=== PATIENT | male | born 1965 | race Two or more races ===

== ENCOUNTER 2018-02-21 04:20 | Emergency (ER) | payer OTHER ==
--- NOTE | 2018-02-21 04:53 | PDOC ---
History of Present Illness - General Stated Complaint: MUSCLE TIGHTNESS Time Seen by Provider: 02/21/18 04:51 - History of Present Illness Initial Comments: The patient is a 52M w/ a history of HTN and R hip surgery 2/2 trauma many years ago who presents for evaluation of acute on chronic R hip pain. The patient states that he feels right lateral thigh 'tightness'. He reports having chronic pain in his R hip that he has had since his surgery. He taking Celebrex and Baclofen for his pain with moderate relief. The patient also states that he feels some tightness when he has been sitting for some time and stands. The tightness alleviates after standing for some time. The patient denies recent trauma or injury to the hip. The patient denies fevers/chill, recent illness, falls, numbness/tingling, or weakness. The patient is able to ambulate w/o assistance Patient reports taking his Baclofen today but none of his other medications including his anti-hypertensives 02/21/18 06:09 Past History - Past Medical History Allergies/Adverse Reactions: Allergies Allergy/AdvReac Type Severity Reaction Status Date / Time oxycodone HCl [From Percocet] AdvReac Severe Verified 02/21/18 05:04 Home Medications: Ambulatory Orders Acetaminophen W/ Codeine #3 [Tylenol # 3 -] 1 tab PO Q4H PRN 12/24/14 Meloxicam [Mobic (Nf) -] 15 mg PO DAILY 12/24/14 Methocarbamol [Robaxin -] 1,000 mg PO TID #18 tablet 12/24/14 Tramadol HCl [Ultram] 50 mg PO BID #20 tablet MDD 2 02/21/18 - Suicide/Smoking/Psychosocial Hx Smoking History: Never smoked Hx Alcohol Use: No Drug/Substance Use Hx: No Review of Systems - Review of Systems Able to Perform ROS?: Yes Comments:: GENERAL/CONSTITUTIONAL: No fever or chills. No weakness HEAD, EYES, EARS, NOSE AND THROAT: No change in vision. No ear pain or discharge. No sore throat CARDIOVASCULAR: No chest pain or shortness of breath RESPIRATORY: No cough, wheezing, or hemoptysis GASTROINTESTINAL: No nausea, vomiting, diarrhea or constipation GENITOURINARY: No dysuria, frequency, or change in urination MUSCULOSKELETAL: per HPI SKIN: No rash NEUROLOGIC: No headache, vertigo, loss of consciousness, or change in strength/ sensation ENDOCRINE: No increased thirst. No abnormal weight change HEMATOLOGIC/LYMPHATIC: No anemia, easy bleeding, or history of blood clots ALLERGIC/IMMUNOLOGIC: No hives or skin allergy 02/21/18 06:22 Is the patient limited Tamazight proficient: No *Physical Exam - Vital Signs 02/21/18 06:24 Vital Signs Temp Pulse Resp BP Pulse Ox 98.7 F 78 20 154/98 98 02/21/18 05:04 02/21/18 05:04 02/21/18 05:04 02/21/18 05:04 02/21/18 05:04 - Physical Exam Comments: GENERAL: Awake, alert, and fully oriented, in no acute distress HEAD: No signs of trauma, normocephalic, atraumatic EYES: PERRL, EOMI, sclera anicteric, conjunctiva clear ENT: Hearing grossly normal, nares patent, oropharynx clear without exudates. Moist mucosa NECK: Normal ROM, supple LUNGS: No distress, speaks full sentences, clear to auscultation bilaterally HEART:Regular rate and rhythm, normal S1 and S2, no murmurs appreciated, peripheral pulses normal and equal bilaterally ABDOMEN: Soft, nontender, normoactive bowel sounds. No guarding, no rebound NEUROLOGICAL: Cranial nerves II through XII grossly intact. Normal speech, normal gait, no focal sensorimotor deficits SKIN: Warm, Dry, normal turgor, no rashes or lesions noted RLE: Inspection: Well healed scar over hip. No erythema or ecchymosis. No tenderness , no obvious abnormalities, no open wounds. Compartments soft and compressible, no pain to passive stretch Sensation: SPLT DP, SP, Tib, Alfonzo, Saph sensation to light touch intact Motor: 5/5 EHL, 5/5 FHL, 5/5 TA, 5/5GS, 5/5 Quad, 5/5 Ham Vascular: 2+ DP/PT, all toes BCR <2 sec LLE: Inspection: No erythema or ecchymosis. No tenderness, no obvious abnormalities, no open wounds. Compartments soft and compressible, no pain to passive stretch Sensation: SPLT DP, SP, Tib, Alfonzo, Saph sensation to light touch intact Motor: 5/5 EHL, 5/5 FHL, 5/5 TA, 5/5GS, 5/5 Quad, 5/5 Ham Vascular: 2+ DP/PT, all toes BCR <2 sec 02/21/18 06:24 Medical Decision Making - Medical Decision Making The patient is a 52M w/ a history of HTN and R hip surgery who presents for evaluation of acute on chronic R thigh tightness Ddx: muscle spasm, joint stiffness 2/2 reduced mobility, arthritis, not likely trauma or fx ED Course Rx for Tramadol Instructions for stretching exercises given Plan for D/C w/ PCP f/u Return precautions given Plan discussed with patient who is in agreement and verbalized understanding Dispo: Home 02/21/18 06:26 *DC/Admit/Observation/Transfer Diagnosis at time of Disposition: Right hip pain, Muscle tightness - Discharge Dispostion Disposition: HOME Condition at time of disposition: Stable Decision to Admit order: No - Prescriptions Prescriptions: Tramadol HCl [Ultram] 50 mg PO BID #20 tablet MDD 2 - Referrals Referrals: Brian Clark MD [Primary Care Provider] - - Patient Instructions Printed Discharge Instructions: Stretching Exercises Additional Instructions: You were seen today in the Emergency Room for right hip/muscle tightness. Please review the handouts provided at discharge. Please follow up with your primary care provider within the next 1-3 days. Return to the Emergency Room if you develop fevers, changes in sensation, worsening pain, or any new/concerning symptoms. - Post Discharge Activity
[2018-02-21 05:05] VITALS: PULSE 78; TEMP 98.7; BMI 41.8
--- NOTE | 2018-02-21 06:12 | PDOC ---
Attending Attestation - Resident Resident Name: Bakari Berkowitz - ED Attending Attestation I have performed the following: I have examined & evaluated the patient, The case was reviewed & discussed with the resident, I agree w/resident's findings & plan
[2018-02-21 06:53] VITALS: BP 145/78
== END 2018-02-21 06:54 | disposition home or self-care (01) ==
LOC: JER 04:20
DX: M25.551 Pain in right hip (principal); M62.89 Other specified disorders of muscle; I10 Essential (primary) hypertension; Z98.890 Other specified postprocedural states
CPT/HCPCS: 99281-25

== ENCOUNTER 2021-08-28 21:46 | Emergency (ER) | payer OTHER ==
[2021-08-28 22:00] VITALS: BP 163/89; PULSE 93; TEMP 98.1; BMI 44.6
[2021-08-28] MEDS ORDERED: KETOROLAC TROMETHAMINE 30 MG/1 ML VIAL IM ONE (22:16)
[2021-08-28] MEDS ORDERED: METHOCARBAMOL 500 MG TABLET PO ONE (22:16)
[2021-08-28] MEDS ORDERED: METHOCARBAMOL 500 MG TABLET ONE (22:19)
[2021-08-28] MEDS ORDERED: KETOROLAC TROMETHAMINE 30 MG/1 ML VIAL ONE (22:19)
== END 2021-08-28 23:01 | disposition home or self-care (01) ==
LOC: JER 21:46
PROC: 3E023GC Introduction of Other Therapeutic Substance into Muscle, Percutaneous Approach (ICD-10-PCS; principal; 2021-08-28)
DX: M25.551 Pain in right hip (principal); V49.40XA Driver injured in collision with unspecified motor vehicles in traffic accident, initial encounter
CPT/HCPCS: 73502-TC-RT-FY; 99284-25

== ENCOUNTER 2021-09-03 03:45 | Emergency (ER) | payer OTHER ==
[2021-09-03 04:14] VITALS: TEMP 98.3; BMI 44.6
[2021-09-03] MEDS ORDERED: KETOROLAC TROMETHAMINE 30 MG/1 ML VIAL IM ONE (04:59)
[2021-09-03] MEDS ORDERED: KETOROLAC TROMETHAMINE 30 MG/1 ML VIAL ONE (05:05)
[2021-09-03 05:50] VITALS: BP 160/89; PULSE 81
== END 2021-09-03 06:39 | disposition home or self-care (01) ==
LOC: JER 03:45
PROC: 3E0233Z Introduction of Anti-inflammatory into Muscle, Percutaneous Approach (ICD-10-PCS; principal; 2021-09-03)
DX: M25.511 Pain in right shoulder (principal)
CPT/HCPCS: 73030-TC-RT-FY; 99284-25

== ENCOUNTER 2023-01-27 13:44 | Emergency (ER) | payer OTHER ==
[2023-01-27] MEDS ORDERED: LIDOCAINE 5% TOPICAL PATCH TP ONE (14:27)
[2023-01-27] MEDS ORDERED: KETOROLAC TROMETHAMINE 30 MG/1 ML VIAL IM ONE (14:27)
[2023-01-27] MEDS ORDERED: KETOROLAC TROMETHAMINE 30 MG/1 ML VIAL ONE (14:28)
[2023-01-27] MEDS ORDERED: LIDOCAINE 5% TOPICAL PATCH ONE (14:28)
[2023-01-27] MEDS ORDERED: METHOCARBAMOL 500 MG TABLET PO ONE (14:33)
[2023-01-27] MEDS ORDERED: METHOCARBAMOL 500 MG TABLET ONE (14:37)
[2023-01-27 14:54] VITALS: BP 140/93; PULSE 74; RESP 18; TEMP 97.8; BMI 37.9
[2023-01-27] MEDS ORDERED: oxyCODONE HCL 5 MG TABLET PO ONE (15:10)
[2023-01-27] MEDS ORDERED: oxyCODONE HCL 5 MG TABLET ONE (15:20)
[2023-01-27] MEDS ORDERED: LIDOCAINE PATCH REMOVAL MC ONE (22:00)
== END 2023-01-27 17:15 | disposition home or self-care (01) ==
LOC: FER 13:44
PROC: 3E0233Z Introduction of Anti-inflammatory into Muscle, Percutaneous Approach (ICD-10-PCS; principal; 2023-01-27)
DX: M54.50 Low back pain, unspecified (principal); R10.84 Generalized abdominal pain
CPT/HCPCS: 81003; 81015; 96372; 99284-25

== ENCOUNTER 2023-01-29 07:15 | Emergency (ER) | payer OTHER ==
[2023-01-29 07:27] VITALS: BP 153/98; PULSE 73; RESP 18; TEMP 98.7; BMI 37.9
[2023-01-29] MEDS ORDERED: LIDOCAINE 5% TOPICAL PATCH ONE (07:47)
[2023-01-29] MEDS ORDERED: ACETAMINOPHEN 325 MG TABLET (FP) ONE (07:47)
[2023-01-29] MEDS ORDERED: LIDOCAINE 5% TOPICAL PATCH TP ONE (07:48)
[2023-01-29] MEDS ORDERED: ACETAMINOPHEN 325 MG TABLET (FP) PO ONE (07:48)
[2023-01-29] MEDS ORDERED: LIDOCAINE PATCH REMOVAL MC SCH (22:00)
== END 2023-01-29 08:00 | disposition home or self-care (01) ==
LOC: FER 07:15
DX: M54.50 Low back pain, unspecified (principal)
CPT/HCPCS: 99283-25